=== PATIENT | male | born 1980 | race African-American/Black ===

== ENCOUNTER 2019-12-14 12:48 | Emergency (ER) | payer OTHER ==
[~2019-12-14] VITALS: Ht 177.8 cm; Wt 96.4 kg
[2019-12-14 12:54] VITALS: BP 163/100
[2019-12-14] MEDS ORDERED: LISI-660 PO (12:55)
[2019-12-14] MEDS ORDERED: CYCLOBENZAPRINE HCL 10 MG TABLET PO ONE (13:15)
[2019-12-14] MEDS ORDERED: LIDOCAINE 5% TRANSDERMAL PATCH TD ONE (13:15)
[2019-12-14] MEDS ORDERED: ACETAMINOPHEN 500 MG TABLET PO ONE (13:15)
== END 2019-12-14 14:25 | disposition home or self-care (01) ==
LOC: EMS 12:49
DX: M54.5 Low back pain (principal); I10 Essential (primary) hypertension; F17.210 Nicotine dependence, cigarettes, uncomplicated; V49.9XXA Car occupant (driver) (passenger) injured in unspecified traffic accident, initial encounter; Y93.89 Activity, other specified; Y92.488 Other paved roadways as the place of occurrence of the external cause; Y99.8 Other external cause status